=== PATIENT | male | born 1980 | race Caucasian/White ===

== ENCOUNTER 2021-02-25 09:22 | Emergency (ER) | payer OTHER ==
--- NOTE | 2021-02-25 10:05 | NUR ---
DR. BONNER EXAMINING PT. PT REFUSED TO BE TRIAGED BY THIS NURSE AFTER HE SAW
--- NOTE | 2021-02-25 10:10 | NUR ---
Patient given verbal discharge instructions and verbalizes understanding. ER MD discussed with patient the results and treatment provided. Rx of NONE given. . Pain Scale 0/10 .
== END 2021-02-25 10:09 | disposition home or self-care (01) ==
LOC: SED 09:22
DX: S02.2XXA Fracture of nasal bones, initial encounter for closed fracture (principal); S05.12XA Contusion of eyeball and orbital tissues, left eye, initial encounter; S09.90XA Unspecified injury of head, initial encounter; Y04.0XXA Assault by unarmed brawl or fight, initial encounter; Y93.89 Activity, other specified; Y92.89 Other specified places as the place of occurrence of the external cause; Y99.8 Other external cause status
CPT/HCPCS: 99281